=== PATIENT | female | born 1995 | race African-American/Black ===

== ENCOUNTER 2019-05-09 19:52 | Emergency (ER) | payer OTHER ==
[~2019-05-09] VITALS: Ht 165.1 cm; Wt 122.5 kg
[2019-05-09] MEDS ORDERED: PREDNISONE 10 M10 MG PO (20:02)
[2019-05-09] MEDS ORDERED: ACCUNEB SO1.25 MG/1 INH (20:02)
[2019-05-09] MEDS ORDERED: PREDNISONE 20 M20 MG PO (20:30)
[2019-05-09] MEDS ORDERED: NEBULIZER MISCELL (22:06)
[2019-05-09] MEDS ORDERED: PROAIR HFA8.5 GM INH (22:06)
[2019-05-09] MEDS ORDERED: ALBUTEROL2.5 MG/31 INH (22:06)
[2019-05-09 22:40] VITALS: BP 132/76
== END 2019-05-09 22:41 | disposition home or self-care (01) ==
LOC: ER 19:52
DX: J45.901 Unspecified asthma with (acute) exacerbation (principal)